=== PATIENT | female | born 1985 | race Caucasian/White ===

== ENCOUNTER 2017-11-12 06:54 | Emergency (ER) | payer OTHER ==
[~2017-11-12] VITALS: Ht 157.5 cm; Wt 74.4 kg
[~2017-11-12 06:54] MED LIST: ACYCLOVIR 400400 MG PO; APAP500 PO; CELEXA40 MG PO; CLARINEX5 MG PO; CLONAZEPAM 0.50.5 M1 PO; COLACE 100 MG100 MG PO; DERMOPLAST SPRA56 ML; DOXYCYCLINE 10100 MG PO; FLAGYL500 MG PO; IBUPROFEN 800800 M1 PO; IRON325 PO; MEDROLDOSEPACK PO; MINIPRESS2 MG PO; NEURONTIN 300300 M1 PO; NORCO 5-325 TA1 EACH PO; PREDNISONE 10 M10 M1 PO; PREDNISONE 20 M20 M1 PO; PROZOSIN PO; SEROQUEL 100 M100 M2 PO; SLEEPING PILL; TEGRETOL100 MG/5 M PO; TRAZODONE HCL100 MG PO; TUCKS MEDICATE1 EAC1; VICODIN 5-5001 EACH PO; VISTARIL 25 MG25 M1 PO; WELLBUTRIN SR100 MG PO
[2017-11-12] MEDS ORDERED: BUSPIRONE HCL10 MG PO (07:18)
[2017-11-12 08:04] LABS: URINE BILIRUBIN NEGATIVE (Negative); URINE BLOOD NEGATIVE (Negative); URINE CLARITY CLEAR; URINE COLOR YELLOW; URINE GLUCOSE-RANDOM* NEGATIVE (Negative); URINE KETONES NEGATIVE (Negative); URINE NITRITE-REFLEX NEGATIVE (Negative); URINE PROTEIN (DIPSTICK) NEGATIVE (Negative); URINE SPECIFIC GRAVITY 1.025 (1.005-1.035); URINE UROBILINOGEN 0.2 E.U./dl (0.2-1.0)
[2017-11-12 08:05] LABS: URINE LEUKOCYTES-REFLEX TRACE (Negative)
[2017-11-12 08:08] VITALS: BP 132/78
[2017-11-12 08:13] LABS: AMP/METHAMP POSITIVE (Negative); BARBITURATES Negative (Negative); BENZODIAZEPINES Negative (Negative); COCAINE Negative (Negative); METHADONE Negative (Negative); OPIATES Negative (Negative); PCP Negative (Negative)
[2017-11-12 08:18] LABS: ABSOLUTE NEUTROPHILS 6.2 thou/uL (1.4-8.2); BASOPHILS 0.7 % (0.0-2.0); EOSINOPHILS 0.1 % (0.0-3.0); HEMATOCRIT 36.6 % (37.0-47.0); HEMOGLOBIN 12.5 gm/dL (12.0-15.0); LYMPHOCYTES 17.5 % (24.0-44.0); MCH 32.1 pg (26.0-34.0); MCHC 34.2 g/dL (28.0-37.0); MCV 93.9 fL (80.0-100.0); MONOCYTES 6.4 % (1.0-8.0); PLATELET COUNT 230 thou/uL (150-400); POLYS 75.3 % (36.0-66.0); RDW 13.5 % (10.5-14.5); WBC 8.2 thou/uL (4.0-11.0)
[2017-11-12 08:26] LABS: CALCIUM 8.5 mg/dL (8.5-10.1); CREATININE 0.9 mg/dL (0.6-1.0); POTASSIUM 3.2 mmol/L (3.5-5.1)
== END 2017-11-12 10:36 | disposition left against medical advice (07) ==
LOC: ER 06:54
PROVIDERS: Emergency Medicine
DX: F30.9 Manic episode, unspecified (principal); R45.1 Restlessness and agitation; F25.9 Schizoaffective disorder, unspecified; Z88.1 Allergy status to other antibiotic agents; Z87.891 Personal history of nicotine dependence

== ENCOUNTER 2021-06-20 10:28 | Emergency (ER) | payer OTHER ==
[~2021-06-20] VITALS: Ht 157.5 cm; Wt 86.2 kg
[~2021-06-20 10:28] MED LIST changes: +BUSPIRONE HCL10 MG PO; +QUETIAPINE FUM100 MG PO; +STRATTERA40 MG PO; +STROMECTOL3 MG PO
[2021-06-20 10:49] VITALS: BP 133/88
[2021-06-20 10:53] LABS: URINE BILIRUBIN NEGATIVE (Negative); URINE BLOOD NEGATIVE (Negative); URINE CLARITY CLEAR; URINE COLOR YELLOW; URINE GLUCOSE-RANDOM* NEGATIVE (Negative); URINE KETONES NEGATIVE (Negative); URINE LEUKOCYTES-REFLEX NEGATIVE (Negative); URINE NITRITE-REFLEX NEGATIVE (Negative); URINE PROTEIN (DIPSTICK) NEGATIVE (Negative); URINE SPECIFIC GRAVITY <= 1.005 (1.005-1.035); URINE UROBILINOGEN 0.2 E.U./dl (0.2-1.0)
[2021-06-20 12:00] LABS: AMP/METHAMP Negative (Negative); BARBITURATES Negative (Negative); BENZODIAZEPINES Negative (Negative); COCAINE Negative (Negative); METHADONE Negative (Negative); OPIATES Negative (Negative); PCP Negative (Negative)
[2021-06-20 12:39] LABS: HEMOGLOBIN 12.9 gm/dL (12.0-15.0); MCH 32.2 pg (26.0-34.0); MCHC 34.1 g/dL (28.0-37.0); MCV 94.4 fL (80.0-100.0); RBC 4.02 mil/uL (4.20-5.00); RDW 11.7 % (10.5-14.5); WBC 5.6 thou/uL (4.0-11.0)
[2021-06-20 12:42] LABS: CALCIUM 8.9 mg/dL (8.5-10.1); CREATININE 0.7 mg/dL (0.6-1.0); POTASSIUM 3.6 mmol/L (3.5-5.1)
[2021-06-20 12:47] LABS: ALBUMIN 3.8 g/dL (3.4-5.0); TOTAL BILIRUBIN 0.3 mg/dL (0.2-1.0); TOTAL PROTEIN 7.1 g/dL (6.4-8.2)
[2021-06-21] MEDS ORDERED: NAPROSYN500 MG PO (22:42)
== END 2021-06-20 13:48 | disposition left against medical advice (07) ==
LOC: ER 10:28
PROVIDERS: Emergency Medicine; Student in an Organized Health Care Education/Training Program
DX: N89.8 Other specified noninflammatory disorders of vagina (principal); Z20.822 Contact with and (suspected) exposure to COVID-19; Z79.899 Other long term (current) drug therapy; Z87.891 Personal history of nicotine dependence; Z88.8 Allergy status to other drugs, medicaments and biological substances

== ENCOUNTER 2021-06-21 22:10 | Emergency (ER) | payer OTHER ==
[~2021-06-21] VITALS: Ht 157.5 cm; Wt 86.2 kg
[2021-06-21] MEDS ORDERED: NAPROSYN500 MG PO (22:42)
[2021-06-21 23:55] VITALS: BP 164/110
== END 2021-06-22 06:47 | disposition home or self-care (01) ==
LOC: ER 22:10
PROVIDERS: Emergency Medicine
DX: M79.10 Myalgia, unspecified site (principal); Z79.899 Other long term (current) drug therapy; Z88.8 Allergy status to other drugs, medicaments and biological substances; Z87.891 Personal history of nicotine dependence

== ENCOUNTER 2021-07-14 17:57 | Emergency (ER) | payer OTHER ==
[~2021-07-14] VITALS: Ht 157.5 cm; Wt 86.2 kg
[~2021-07-14 17:57] MED LIST changes: +NAPROSYN500 MG PO
[2021-07-14] MEDS ORDERED: DESYREL150 MG PO (18:07)
[2021-07-14 18:43] LABS: BASOPHILS 0.8 % (0.0-2.0); EOSINOPHILS 0.9 % (0.0-3.0); HEMATOCRIT 37.3 % (37.0-47.0); HEMOGLOBIN 12.8 gm/dL (12.0-15.0); MCH 31.7 pg (26.0-34.0); MCHC 34.3 g/dL (28.0-37.0); MCV 92.7 fL (80.0-100.0); MONOCYTES 9.4 % (1.0-8.0); PLATELET COUNT 258 thou/uL (150-400); POLYS 49.9 % (36.0-66.0); RBC 4.03 mil/uL (4.20-5.00); RDW 12.2 % (10.5-14.5)
[2021-07-14 18:54] LABS: ALBUMIN 4.1 g/dL (3.4-5.0); CALCIUM 8.3 mg/dL (8.5-10.1); CREATININE 0.9 mg/dL (0.6-1.0); TOTAL BILIRUBIN 0.6 mg/dL (0.2-1.0); TOTAL PROTEIN 7.3 g/dL (6.4-8.2)
[2021-07-14 19:10] VITALS: BP 138/96
[2021-07-14 19:13] LABS: URINE BILIRUBIN NEGATIVE (Negative); URINE BLOOD TRACE (Negative); URINE CLARITY CLEAR; URINE COLOR YELLOW; URINE GLUCOSE-RANDOM* NEGATIVE (Negative); URINE KETONES NEGATIVE (Negative); URINE LEUKOCYTES-REFLEX NEGATIVE (Negative); URINE NITRITE-REFLEX NEGATIVE (Negative); URINE PROTEIN (DIPSTICK) NEGATIVE (Negative); URINE SPECIFIC GRAVITY 1.025 (1.005-1.035); URINE UROBILINOGEN 0.2 E.U./dl (0.2-1.0)
[2021-07-15] MEDS ORDERED: KLOR-CON M2020 MEQ PO (05:04)
== END 2021-07-14 19:10 | disposition home or self-care (01) ==
LOC: ER 17:57
PROVIDERS: Physician Assistant
DX: M79.10 Myalgia, unspecified site (principal); F31.9 Bipolar disorder, unspecified; I10 Essential (primary) hypertension; F12.90 Cannabis use, unspecified, uncomplicated; Z79.899 Other long term (current) drug therapy; Z88.1 Allergy status to other antibiotic agents; Z88.6 Allergy status to analgesic agent; Z88.8 Allergy status to other drugs, medicaments and biological substances; Z87.891 Personal history of nicotine dependence

== ENCOUNTER 2021-07-15 03:01 | Emergency (ER) | payer OTHER ==
[~2021-07-15] VITALS: Ht 162.6 cm; Wt 68.0 kg
--- NOTE | ~2021-07-15 | EMS ---
[address] [address] EMS Patient Care Report Name: DANIEL BRANTLEY Room #: DEP MILY Mao#: [id number] Admission: 07/15/21 Attend Phys: Discharge: 07/15/21 Date of : [birth year] Report #: [id number] THIS REPORT FOR: //name// Report Transmitted: 07/15/2021 06:15 EMS Care Summary [facility] MED-ACT Incident [id number] @ 07/15/2021 02:24 Incident Location [address] [place] [address] Patient DANIEL BRANTLEY Female, 36 Years 1985 Patient Address [address] [place] [address] Patient History Other, Patient Allergies Zithromax,Other drug allergy, Patient Medications Clonidine, Prazosin, Doxycycline, Trazodone, Hydroxyzine, Chief Complaint Full body pain Disposition Transported No Lights/[place] Reason Headache Transported To [facility] Narrative [id number] dispatched C1 to hotel for headache. Stage for PD. Scene secure per pd. Upon arrival pt found standing in room, responsive, breathing nonlabored, [address] [address] EMS Patient Care Report Name: DANIEL BRANTLEY Room #: DEP Miguel.#: [id number] Admission: 07/15/21 Attend Phys: Discharge: 07/15/21 Date of : [birth year] Report #: [id number] tended to by law enforcement. Pt states that she has pain all over and was exposed to covid a year ago and thinks that she has it. Pt appears to be agitated and appears to have erratic behavior. Pt states multiple times that she doesn't want the doctors to discriminate against her at the hospital and doesn't want to be sent to a psych facility. Pt able to walk to cot. Pt refuses to answer anymore questions while enroute. Pt refuses to keep arm still and straight for 2nd BP Pt condition and vitals monitored enroute. Pt care transferred in Er room 7. Report given to nurse. Initial Vitals @02:52P: 138,SpO2: 95, @02:48P: 139,R: 22,BP: 144/81,GCS: 15,SpO2: 95,Revised Trauma: 12, @02:59P: 160,R: 22,BP: 159/123,GCS: 15,SpO2: 97,Revised Trauma: 12, Impression Pain (Non-Traumatic) Timeline 02:22,Call Received 02:22,Psap Call 02:24,Dispatched 02:26,En Route 02:35,On Scene 02:39,At Patient 02:48,BP: 144/81 M,PULSE: 139,RR: 22 R,SPO2: 95 Ox,ETCO2: ,BG: ,PAIN: ,GCS: 15, 02:51,Depart Scene 02:52,BP: / M,PULSE: 138,RR: R,SPO2: 95 Ox,ETCO2: ,BG: ,PAIN: ,GCS: , 02:59,BP: 159/123 M,PULSE: 160,RR: 22 R,SPO2: 97 Ox,ETCO2: ,BG: ,PAIN: ,GCS: 15, 02:59,At Destination 03:14,Call Closed Disclaimer [email or web address] Copyright 2021 [email or web address] This EMS Care Summary contains data elements from the applicable legal record (which may be displayed differently). It is designed to provide pertinent information for the following purposes: continuity of care, clinical quality, and state data reporting. The complete legal record is available to ED staff [address] [address] EMS Patient Care Report Name: DANIEL BRANTLEY [id number] Admission: 07/15/21 Attend Phys: Discharge: 07/15/21 Date of : [birth year] Report #: [id number] and administrators of the receiving hospital in [facility]'s Patient Tracker. All data is provided "as is."
[~2021-07-15 03:01] MED LIST changes: +DESYREL150 MG PO
[2021-07-15 03:56] LABS: ABSOLUTE NEUTROPHILS 1.8 thou/uL (1.4-8.2); BASOPHILS 0.7 % (0.0-2.0); EOSINOPHILS 1.7 % (0.0-3.0); HEMATOCRIT 35.1 % (37.0-47.0); HEMOGLOBIN 12.4 gm/dL (12.0-15.0); LYMPHOCYTES 50.2 % (24.0-44.0); MCH 32.3 pg (26.0-34.0); MCHC 35.2 g/dL (28.0-37.0); MCV 91.9 fL (80.0-100.0); MONOCYTES 9.9 % (1.0-8.0); PLATELET COUNT 207 thou/uL (150-400); POLYS 37.5 % (36.0-66.0); RBC 3.82 mil/uL (4.20-5.00); WBC 4.9 thou/uL (4.0-11.0)
[2021-07-15 04:10] LABS: ANION GAP 12 mmol/L (7-16); BUN 13 mg/dL (7-18); CALCIUM 8.3 mg/dL (8.5-10.1); CHLORIDE 100 mmol/L (98-107); CO2 21 mmol/L (21-32); CREATININE 0.8 mg/dL (0.6-1.0); GLUCOSE 122 mg/dL (74-106); SALICYLATE < 2.8 mg/dL (2.8-20.0); SODIUM 133 mmol/L (136-145)
[2021-07-15 04:19] LABS: POTASSIUM 2.8 mmol/L (3.5-5.1)
[2021-07-15 04:56] LABS: AMP/METHAMP Negative (Negative); BARBITURATES Negative (Negative); BENZODIAZEPINES Negative (Negative); COCAINE Negative (Negative); METHADONE Negative (Negative); OPIATES Negative (Negative); PCP Negative (Negative)
[2021-07-15] MEDS ORDERED: KLOR-CON M2020 MEQ PO (05:04)
[2021-07-15 05:12] VITALS: BP 163/95
== END 2021-07-15 05:15 | disposition home or self-care (01) ==
LOC: ER 03:01
PROVIDERS: Emergency Medicine
DX: R00.0 Tachycardia, unspecified (principal); Z20.822 Contact with and (suspected) exposure to COVID-19; G62.9 Polyneuropathy, unspecified; F31.9 Bipolar disorder, unspecified; I10 Essential (primary) hypertension; Z79.899 Other long term (current) drug therapy; Z88.1 Allergy status to other antibiotic agents; Z88.6 Allergy status to analgesic agent; Z88.8 Allergy status to other drugs, medicaments and biological substances; Z87.891 Personal history of nicotine dependence